=== PATIENT | female | born 1990 | race Caucasian/White ===

== ENCOUNTER 2019-12-06 08:07 | Emergency (ER) | payer OTHER ==
[~2019-12-06] VITALS: Ht 172.7 cm; Wt 80.3 kg
[2019-12-06 08:19] VITALS: BP 109/65
[2019-12-06] MEDS ORDERED: ONDANSETRON ODT 4 MG TAB.RAPDIS. PO ONE (09:00)
[2019-12-06] MEDS ORDERED: MORPHINE SULFATE 10 MG/ML VIAL. SQ ONE (09:00)
[2019-12-06] MEDS ORDERED: CYCLOBENZAPRINE 10 MG TABLET. PO ONE (09:00)
[2019-12-06] MEDS ORDERED: ONDA4TAB7 PO (10:03)
[2019-12-06] MEDS ORDERED: IBUP-1060 PO (10:03)
[2019-12-06] MEDS ORDERED: METH4TAB2 PO (10:03)
[2019-12-06] MEDS ORDERED: HYDR-3164 PO (10:03)
[2019-12-06] MEDS ORDERED: CYCL10TA2 PO (10:03)
--- NOTE | 2019-12-06 10:03 | PHYS DOC ---
Past Medical History Past Medical History: No Pertinent History Past Surgical History: Tonsillectomy, Other Additional Past Surgical Histo: Breast Augmentation Smoking Status: Never Smoker Alcohol Use: None Adult General Chief Complaint Chief Complaint: LOWER BACK PAIN OR INJURY HPI HPI Patient is a 29 year old female without history of medical problem who presents with complaint of back pain. Patient states she felt a pop in her back in August 2019 when she tried to vegetable picker heavy weight and had pain for several days that gradually improved. Patient complaining of nontraumatic right lower back pain for the last 1 week as a constant pain with radiation to lateral of right thigh and getting worse with movement and activity. Patient denies abdominal pain, nausea vomiting, fever and chills, focal neuro deficit, urine or bowel incontinence, . Patient rated her pain 10/10 and states she took Naprosyn without improvement of her pain. Review of Systems Review of Systems Constitutional: Denies fever or chills [] Eyes: Denies change in visual acuity, redness, or eye pain [] HENT: Denies nasal congestion or sore throat [] Respiratory: Denies cough or shortness of breath [] Cardiovascular: No additional information not addressed in HPI [] GI: Denies abdominal pain, nausea, vomiting, bloody stools or diarrhea [] : Denies dysuria or hematuria [] Musculoskeletal: Reports back pain Integument: Denies rash or skin lesions [] Neurologic: Denies headache, focal weakness or sensory changes [] Endocrine: Denies polyuria or polydipsia [] All other systems were reviewed and found to be within normal limits, except as documented in this note. Current Medications Current Medications Current Medications Medications (Trade) Dose Ordered Sig/Jono Start Time Stop Time Status Last Admin Dose Admin Cyclobenzaprine HCl (Flexeril) 10 mg 1X ONCE 12/06/19 09:00 12/06/19 09:01 DC 12/06/19 09:04 10 MG Morphine Sulfate (Morphine Sulfate) 5 mg 1X ONCE 12/06/19 09:00 12/06/19 09:01 DC 12/06/19 09:05 5 MG Ondansetron HCl (Zofran Odt) 4 mg 1X ONCE 12/06/19 09:00 12/06/19 09:01 DC 12/06/19 09:04 4 MG Allergies Allergies Allergies Coded Allergies Type Severity Reaction Last Updated Verified Latex, Natural Rubber Allergy Intermediate 12/06/19 Yes adhesive Allergy Intermediate 12/06/19 Yes Physical Exam Physical Exam Constitutional: Well developed, well nourished, moderate distress, non-toxic appearance. [] HENT: Normocephalic, atraumatic. Eyes: PERRLA, EOMI, conjunctiva normal, no discharge. [] Neck: Normal range of motion, no tenderness, supple, no stridor. [] Cardiovascular:Heart rate regular rhythm, no murmur [] Lungs & Thorax: Bilateral breath sounds clear to auscultation [] Abdomen: Bowel sounds normal, soft, no tenderness, no masses, no pulsatile masses. [] Skin: Warm, dry, no erythema, no rash. [] Back: No midline tenderness, right paraspinal muscle spasm and painful range of motion, no CVA tenderness. [] Extremities: No tenderness, no cyanosis, no clubbing, ROM intact, no edema. [] Neurologic: Alert and oriented X 3, no focal deficits noted. [] Psychologic: Affect normal, judgement normal, mood normal. [] Current Patient Data Vital Signs Vital Signs Date Time Temp Pulse Resp B/P (MAP) Pulse Ox O2 Delivery O2 Flow Rate FiO2 12/06/19 09:05 Room Air 12/06/19 08:19 97.4 80 16 109/65 (80) 96 97.4 EKG EKG [] Radiology/Procedures Radiology/Procedures [] Course & Med Decision Making Course & Med Decision Making Evaluation of patient in ER showed 29-year-old female patient with complaining of low back pain with radiation to the back of her thigh for 1 week that did not get better with [id number] pain medication. Patient had paraspinal muscle spasm. Patient treated with morphine and Flexeril and Zofran with improvement of her pain. Patient was advised to apply ice on her back and follow-up with her primary care physician for further evaluation as needed. I've spoken with the patient and/or caregivers. I've explained the patient's condition, diagnosis and treatment plan based on information available to me at this time. I've answered the patient's and/or caregivers questions and addressed any concerns. The patient and/or caregivers have a good understanding the patient's diagnosis, condition and treatment plan as can be expected at this point. Vital signs have been stabilized. The patient's condition is stable for discharge from the emergency department. The patient will pursue further outpatient evaluation with her primary care provider or other designated consulting physician as outlined in the discharge instructions. Patient and/or caregivers are agreeable to this plan of care and follow-up instructions have been explained in detail. The patient and/or caregivers have received these instructions in written format and expressed understanding of these discharge instructions. The patient and her caregivers are aware that if any significant change in condition or worsening of symptoms should prompt him to immediately return to this of the closest emergency department. If an emergent department is not readily available I would encourage him to call 911. Donya Disclaimer Donya Disclaimer This electronic medical record was generated, in whole or in part, using a voice recognition dictation system. Departure Departure Impression: Primary Impression: Lumbosacral strain Additional Impression: Sciatica Disposition: HOME, SELF-CARE (At 0 [phone]) Condition: IMPROVED Referrals: NO PCP (PCP) Patient Instructions: Lumbosacral Strain, Sciatica Additional Instructions: Drink plenty of liquids Follow-up with your primary care physician in 3-5 days Return to ER if not getting better Apply ice on the affected area Thank you for visiting [facility]. We appreciate you trusting us with your care. If any additional problems come up don't hesitate to return to visit us. Please follow up with your primary care provider so they can plan additional care if needed and know about the problem that you had. If symptoms worsen come back to the Emergency Department. Any concerning symptoms that start such as chest pain, shortness of air, weakness or numbness on one side of the body, running high fevers or any other concerning symptoms return to the ER. Scripts Ondansetron Hcl (ZOFRAN) 4 Mg Tablet 1 TAB PO PRN Q6-8HRS for nausea, #12 TAB Prov: ALE PUCKETT MD 12/06/19 Hydrocodone/Apap 5-325 (NORCO 5-325 TABLET) 1 Each Tablet 1 TAB PO PRN Q6HRS PRN for PAIN, #14 TAB 0 Refills Prov: ALE PUCKETT MD 12/06/19 Ibuprofen (IBUPROFEN) 800 Mg Tablet 800 MG PO PRN Q8HRS PRN for INFLAMMATION, #20 TAB Prov: ALE PUCKETT MD 12/06/19 Methylprednisolone (MEDROL) 4 Mg Tab.ds.pk 1 PKG PO UD for inflammation, #1 PKG Prov: ALE PUCKETT MD 12/06/19 Cyclobenzaprine Hcl (CYCLOBENZAPRINE HCL) 10 Mg Tablet 1 TAB PO TID, #21 TAB Prov: ALE PUCKETT MD 12/06/19 Problem Qualifiers Primary Impression: Lumbosacral strain Encounter type: subsequent encounter Qualified Codes: S39.012D - Strain of muscle, fascia and tendon of lower back, subsequent encounter Additional Impression: Sciatica Laterality: right Qualified Codes: M54.31 - Sciatica, right side ALE PUCKETT MD Dec 06, 2019 10:03
== END 2019-12-06 10:22 | disposition home or self-care (01) ==
LOC: ER 08:07
DX: S39.012A Strain of muscle, fascia and tendon of lower back, initial encounter (principal); M54.41 Lumbago with sciatica, right side; Z91.040 Latex allergy status; Z88.8 Allergy status to other drugs, medicaments and biological substances; X50.0XXA Overexertion from strenuous movement or load, initial encounter; Y93.89 Activity, other specified; Y92.89 Other specified places as the place of occurrence of the external cause; Y99.8 Other external cause status
CPT/HCPCS: 96372; 99283; J2270; Q0162